=== PATIENT | female | born 2000 | race Caucasian/White ===

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

== ENCOUNTER 2020-02-12 16:33 | Emergency (ER) | payer OTHER ==
[~2020-02-12] VITALS: Ht 170.2 cm; Wt 58.1 kg
[~2020-02-12 16:33] MED LIST: ALPR0.5T PO; NORE-106
[2020-02-12 17:28] LABS: BASOPHILS % (AUTO) 0 % (0-10); EOSINOPHILS # (AUTO) 0.1 10^3/uL (0.0-0.3); EOSINOPHILS % (AUTO) 1 % (0-10); HEMATOCRIT 42 % (35-52); HEMOGLOBIN 15.3 G/DL (11.5-16.0); LYMPHOCYTES # (AUTO) 2.4 X 10^3 (1.0-4.0); LYMPHOCYTES % (AUTO) 42 % (12-44); MEAN CORPUSCULAR HEMOGLOBIN 32 PG (25-34); MEAN CORPUSCULAR HGB CONC 37 G/DL (32-36); MEAN CORPUSCULAR VOLUME 87 FL (80-99); MEAN PLATELET VOLUME 10.3 FL (7.4-10.4); MONOCYTES # (AUTO) 0.4 X 10^3 (0.0-1.0); MONOCYTES % (AUTO) 6 % (0-12); NEUTROPHILS # (AUTO) 2.9 X 10^3 (1.8-7.8); NEUTROPHILS % (AUTO) 51 % (42-75); PLATELET COUNT 184 10^3/uL (130-400); RED CELL DISTRIBUTION WIDTH 12.9 % (10.0-14.5); WHITE BLOOD COUNT 5.7 10^3/uL (4.3-11.0)
[2020-02-12 17:33] LABS: CHLORIDE 105 MMOL/L (98-107); POTASSIUM 3.7 MMOL/L (3.6-5.0); SODIUM 139 MMOL/L (135-145)
[2020-02-12 17:34] LABS: CALCIUM 9.9 MG/DL (8.5-10.1); GLUCOSE 96 MG/DL (70-105)
[2020-02-12 17:36] LABS: CARBON DIOXIDE 24 MMOL/L (21-32)
[2020-02-12 17:38] LABS: CREATININE SERUM 0.83 MG/DL (0.60-1.30); GFR ESTIMATED > 60
[2020-02-12 17:39] LABS: BUN/CREATININE RATIO 10
--- NOTE | 2020-02-12 17:52 | ED General ---
General Chief Complaint: Cardiac/General Problems Stated Complaint: CHEST PAIN;HEART FLUTTER;SOA Nursing Triage Note: PT AMBULATE TO ROOM 08 WITH C/O HEARTING FLUTTERING. Nursing Sepsis Screen: No Definite Risk Source of Information: Patient Exam Limitations: No Limitations History of Present Illness Date Seen by Provider: Feb 12, 2020 Time Seen by Provider: 17:31 Initial Comments Here with report of heart palpitations. She felt like her heart rate was actually low and then high normal today. Had a period where she felt sleepy and sluggish. Also has focal cord dysfunction and felt that coming on which she usually resolves with Xanax but she did not want to take that because she did not want to feel more sluggish. Presents here for further evaluation to make sure that there is not a heart rhythm problem. Does not use significant amount of caffeine and does not smoke or use illicit drugs. She's had this problem previously and has been told that the sluggish feeling may be related to the need to eat or lower blood sugar. She's also been instructed to drink electrolyte containing fluids such as Gatorade or Pedialyte. She is currently in no distress and not having any current problems. Timing/Duration: 1-3 Hours, Changing Over Time, Gone Now Severity: Mild, Moderate Associated Systoms: No Chest Pain, No Cough, No Fever/Chills, No Nausea/Vomiting, No Shortness of Air; Weakness Allergies and Home Medications Allergies Coded Allergies: No Known Drug Allergies (Unverified , 09/02/19) Patient Home Medication List Home Medication List Reviewed: Yes Review of Systems Review of Systems Constitutional: see HPI; No chills, No fever EENTM: no symptoms reported Respiratory: no symptoms reported Cardiovascular: No chest pain; palpitations Gastrointestinal: No abdominal pain, No nausea, No vomiting Genitourinary: no symptoms reported : No Skin: no symptoms reported Psychiatric/Neurological: Anxiety, Weakness Past Inhetyy-Tdcrki-Kemxrm Hx Past Med/Social Hx: Reviewed Nursing Past Med/Soc Hx Patient Social History Alcohol Use: Denies Use Recreational Drug Use: No Smoking Status: Never a Smoker 2nd Hand Smoke Exposure: No Recent Foreign Travel: No Contact w/Someone Who Travel: No Recent Infectious Disease Expo: No Recent Hopitalizations: No Physical Abuse: No Sexual Abuse: No Mistreated: No Fear: No Immunizations Up To Date Date of Influenza Vaccine: Mar 17, 2019 Seasonal Allergies Seasonal Allergies: No Past Medical History Surgeries: Yes Abdominal Respiratory: Yes Asthma Cardiac: No Neurological: No Genitourinary: No Gastrointestinal: No Musculoskeletal: No Endocrine: No HEENT: Yes (paroxysmal vocal cord motion dysfunction) Cancer: No Psychosocial: Yes Anxiety Integumentary: No Blood Disorders: No Family Medical History Reviewed Nursing Family Hx Physical Exam Vital Signs Vital Signs - First Documented 02/12/20 16:57 Temp 36.7 Pulse 79 Resp 18 B/P (MAP) 152/87 (108) O2 Delivery Room Air Capillary Refill : Less Than 3 Seconds Height, Weight, BMI Height: '" Weight: lbs. oz. kg; 20.00 BMI Method: General Appearance: No Apparent Distress, WD/WN Neck: Non Tender, Supple Respiratory: Lungs Clear, Normal Breath Sounds, No Accessory Muscle Use, No Respiratory Distress Cardiovascular: Regular Rate, Rhythm, No Murmur, Normal Peripheral Pulses Back: Normal Inspection, No CVA Tenderness, No Vertebral Tenderness Extremity: Normal Inspection, Normal Range of Motion, Non Tender, No Calf Tenderness, No Pedal Edema Neurologic/Psychiatric: Alert, Oriented x3 Progress/Results/Core Measures Suspected Sepsis Recent Fever Within 48 Hours: No Infection Criteria Present: None New/Unexplained Altered Menta: No Sepsis Screen: No Definite Risk SIRS Temperature: Pulse: 79 Respiratory Rate: 18 Laboratory Tests 02/12/20 17:11: White Blood Count 5.7 Blood Pressure 152 /87 Mean: 108 Laboratory Tests 02/12/20 17:11: Creatinine 0.83, Platelet Count 184 Results/Orders Lab Results Laboratory Tests Test 02/12/20 17:11 Range/Units White Blood Count 5.7 4.3-11.0 10^3/uL Red Blood Count 4.82 4.35-5.85 10^6/uL Hemoglobin 15.3 11.5-16.0 G/DL Hematocrit 42 35-52 % Mean Corpuscular Volume 87 80-99 FL Mean Corpuscular Hemoglobin 32 25-34 PG Mean Corpuscular Hemoglobin Concent 37 H 32-36 G/DL Red Cell Distribution Width 12.9 10.0-14.5 % Platelet Count 184 130-400 10^3/uL Mean Platelet Volume 10.3 7.4-10.4 FL Neutrophils (%) (Auto) 51 42-75 % Lymphocytes (%) (Auto) 42 12-44 % Monocytes (%) (Auto) 6 0-12 % Eosinophils (%) (Auto) 1 0-10 % Basophils (%) (Auto) 0 0-10 % Neutrophils # (Auto) 2.9 1.8-7.8 X 10^3 Lymphocytes # (Auto) 2.4 1.0-4.0 X 10^3 Monocytes # (Auto) 0.4 0.0-1.0 X 10^3 Eosinophils # (Auto) 0.1 0.0-0.3 10^3/uL Basophils # (Auto) 0.0 0.0-0.1 10^3/uL Sodium Level 139 135-145 MMOL/L Potassium Level 3.7 3.6-5.0 MMOL/L Chloride Level 105 98-107 MMOL/L Carbon Dioxide Level 24 21-32 MMOL/L Anion Gap 10 5-14 MMOL/L Blood Urea Nitrogen 8 7-18 MG/DL Creatinine 0.83 0.60-1.30 MG/DL Estimat Glomerular Filtration Rate > 60 BUN/Creatinine Ratio 10 Glucose Level 96 70-105 MG/DL Calcium Level 9.9 8.5-10.1 MG/DL Serum Test, Qualitative NEGATIVE NEGATIVE Vital Signs/I&O 02/12/20 16:57 Temp 36.7 Pulse 79 Resp 18 B/P (MAP) 152/87 (108) O2 Delivery Room Air Capillary Refill : Less Than 3 Seconds Blood Pressure Mean: 108 Progress Note : Progress Note Seen and evaluated. Labs and EKG ordered and done. EKG shows no acute findings and labs showed no acute abnormalities. I did discuss with the patient outpatient options including electrolyte replacement fluids and normal diet especially if she is feeling a little weak. She has not had a menstrual period in 6 months since being off the pill and I encouraged her to discuss this with her doctor. She does admit to some stress but not overwhelming. Currently no acute significant findings. Patient feels comfortable going home and is reassured. Discharged home with return precautions. Patient verbalize un derstanding instructions and agreement with plan. Departure Impression Primary Impression: Palpitations Disposition: HOME, SELF-CARE Condition: Improved Departure-Patient Inst. Decision time for Depature: 17:52 Referrals: [facility] (PCP/Family) Primary Care Physician Patient Instructions: Palpitations Add. Discharge Instructions: All discharge instructions reviewed with patient and/or family. Voiced understanding. Drink plenty of fluids and eat a normal diet. Follow-up with [facility] to discuss this episode and also discuss the lack of menstrual period over the last 6 months. Return for worse pain, fever, vomiting, weakness, breathing problems or other concerns as needed. Copy Copies To 1: ANDREI DOBBS MD, TIMOTHY D MD Feb 12, 2020 17:52
[2020-02-12 18:02] LABS: FREE T4 (FREE THYROXINE) 0.89 NG/DL (0.70-1.48)
[2020-02-12 18:05] VITALS: BP 111/63
== END 2020-02-12 18:05 | disposition home or self-care (01) ==
LOC: EDUNIT# 16:33 → ER 16:35
DX: R00.2 Palpitations (principal); Z87.891 Personal history of nicotine dependence
CPT/HCPCS: 36415; 80048; 84439; 84443; 84703; 85025

== ENCOUNTER 2020-05-04 22:10 | Emergency (ER) | payer OTHER ==
[~2020-05-04] VITALS: Ht 170 cm; Wt 58.1 kg
[2020-05-04] MEDS ORDERED: EPINEPHrine INJECTION 1 MG/ML AMP IM ONE (22:15)
[2020-05-04] MEDS ORDERED: NS IV 500 ML 500 ML IV ONE (22:26)
[2020-05-04 22:38] LABS: BASOPHILS % (AUTO) 0 % (0-10); EOSINOPHILS # (AUTO) 0.1 10^3/uL (0.0-0.3); EOSINOPHILS % (AUTO) 1 % (0-10); HEMATOCRIT 39 % (35-52); HEMOGLOBIN 13.8 g/dL (11.5-16.0); LYMPHOCYTES # (AUTO) 2.9 10^3/uL (1.0-4.0); LYMPHOCYTES % (AUTO) 30 % (12-44); MEAN CORPUSCULAR HEMOGLOBIN 32 pg (25-34); MEAN CORPUSCULAR HGB CONC 36 g/dL (32-36); MEAN CORPUSCULAR VOLUME 91 fL (80-99); MEAN PLATELET VOLUME 10.1 fL (9.0-12.2); MONOCYTES # (AUTO) 0.5 10^3/uL (0.0-1.0); MONOCYTES % (AUTO) 6 % (0-12); NEUTROPHILS % (AUTO) 63 % (42-75); PLATELET COUNT 202 10^3/uL (130-400); WHITE BLOOD COUNT 9.6 10^3/uL (4.3-11.0)
[2020-05-04] MEDS ORDERED: RT-ALBUTEROL SULF 2.5 MG/3 ML PRE-MIX VIAL ONE (22:49)
--- NOTE | 2020-05-04 22:49 | NUR ---
RADHA, PT MOTHER, UPDATED ON CURRENT CONDITION AND PLAN TO MONITOR PT FOR APPROX 2-[address] WAITE.
[2020-05-04] MEDS ORDERED: RT-ALBUTEROL SULF 2.5 MG/3 ML PRE-MIX VIAL INH STA (22:50)
--- NOTE | 2020-05-04 23:02 | ED Respiratory ---
General Chief Complaint: Respiratory Problems Stated Complaint: SOA Source: patient Exam Limitations: no limitations History of Present Illness Date Seen by Provider: May 04, 2020 Time Seen by Provider: 22:06 Initial Comments Patient presents to ER by EMS from [address] [place] [address] where she was traveling to [place] where her family lives when she started having laryngospasm. She has a history of paradoxical laryngospasms and asthma. EMS gave her 4 mg of Ativan. She took a milligram of Ativan herself that she had for they arrived. They also gave her 125 mg of Solu-Medrol and established a line in her left bicep. No epinephrine was given en route. Patient was unable to give any meaningful history but she did have a laminated health history card. She denies any fever chills cough shortness of breath prior to this. Allergies and Home Medications Allergies Coded Allergies: No Known Drug Allergies (Unverified , 09/02/19) Home Medications Epinephrine 0.3 Mg/0.3 Ml Auto.injct, 0.3 MG IJ Q15M PRN for laryngospasm Prescribed by: JANNIE WAITE on 05/05/20 0107 Patient Home Medication List Home Medication List Reviewed: Yes Review of Systems Review of Systems Constitutional: No chills, No diaphoresis EENTM: see HPI; No ear pain, No blurred vision, No eye pain Respiratory: No cough, No short of breath Cardiovascular: No edema, No Hx of Intervention, No vascular heart diseas Gastrointestinal: No abdominal pain, No nausea, No vomiting Genitourinary: No dysuria, No hematuria Past Dtvzpci-Suhxbx-Thrppr Hx Patient Social History Alcohol Use: Denies Use Recreational Drug Use: No Smoking Status: Never a Smoker 2nd Hand Smoke Exposure: No Recent Hopitalizations: No Immunizations Up To Date Date of Influenza Vaccine: Mar 17, 2019 Seasonal Allergies Seasonal Allergies: No Past Medical History Surgeries: Yes Abdominal Respiratory: Yes Asthma Cardiac: No Neurological: No Genitourinary: No Gastrointestinal: No Musculoskeletal: No Endocrine: No HEENT: Yes (paroxysmal vocal cord motion dysfunction) Cancer: No Psychosocial: Yes Anxiety Integumentary: No Blood Disorders: No Physical Exam Vital Signs - First Documented 05/04/20 05/04/20 05/04/20 22:12 22:39 22:56 Temp 36.3 Pulse 99 Resp 22 B/P (MAP) 121/69 Pulse Ox 98 O2 Delivery Room Air O2 Flow Rate 2.00 Capillary Refill : Height: '" Weight: lbs. oz. kg; 20.00 BMI Method: General Appearance: WD/WN, moderate distress Eyes: Bilateral Eye Normal Inspection, Bilateral Eye PERRL, Bilateral Eye EOMI HEENT: PERRL/EOMI, pharynx normal, other (laryngospasm with audible stridor) Neck: non-tender, full range of motion, normal inspection Respiratory: respiratory distress, decreased breath sounds, accessory muscle use, wheezing (faint bilateral), other (stridor and accessory muscle use and retractions supraclavicular) Cardiovascular: normal peripheral pulses, regular rate, rhythm Progress/Results/Core Measures Suspected Sepsis SIRS Temperature: Pulse: Respiratory Rate: Laboratory Tests 05/04/20 22:30: White Blood Count 9.6 Blood Pressure / Mean: Laboratory Tests 05/04/20 22:30: Creatinine 0.87, Platelet Count 202, Total Bilirubin 0.4 Results/Orders Lab Results Laboratory Tests Test 05/04/20 22:30 Range/Units White Blood Count 9.6 4.3-11.0 10^3/uL Red Blood Count 4.30 3.80-5.11 10^6/uL Hemoglobin 13.8 11.5-16.0 g/dL Hematocrit 39 35-52 % Mean Corpuscular Volume 91 80-99 fL Mean Corpuscular Hemoglobin 32 25-34 pg Mean Corpuscular Hemoglobin Concent 36 32-36 g/dL Red Cell Distribution Width 11.9 10.0-14.5 % Platelet Count 202 130-400 10^3/uL Mean Platelet Volume 10.1 9.0-12.2 fL Immature Granulocyte % (Auto) 0 % Neutrophils (%) (Auto) 63 42-75 % Lymphocytes (%) (Auto) 30 12-44 % Monocytes (%) (Auto) 6 0-12 % Eosinophils (%) (Auto) 1 0-10 % Basophils (%) (Auto) 0 0-10 % Neutrophils # (Auto) 6.0 1.8-7.8 10^3/uL Lymphocytes # (Auto) 2.9 1.0-4.0 10^3/uL Monocytes # (Auto) 0.5 0.0-1.0 10^3/uL Eosinophils # (Auto) 0.1 0.0-0.3 10^3/uL Basophils # (Auto) 0.0 0.0-0.1 10^3/uL Immature Granulocyte # (Auto) 0.0 0.0-0.1 10^3/uL Sodium Level 139 135-145 MMOL/L Potassium Level 3.1 L 3.6-5.0 MMOL/L Chloride Level 107 98-107 MMOL/L Carbon Dioxide Level 17 L 21-32 MMOL/L Anion Gap 15 H 5-14 MMOL/L Blood Urea Nitrogen 15 7-18 MG/DL Creatinine 0.87 0.60-1.30 MG/DL Estimat Glomerular Filtration Rate > 60 BUN/Creatinine Ratio 17 Glucose Level 105 70-105 MG/DL Calcium Level 9.6 8.5-10.1 MG/DL Corrected Calcium 9.2 8.5-10.1 MG/DL Total Bilirubin 0.4 0.1-1.0 MG/DL Aspartate Amino Transf (AST/SGOT) 17 5-34 U/L Alanine Aminotransferase (ALT/SGPT) 13 0-55 U/L Alkaline Phosphatase 78 40-136 U/L C-Reactive Protein High Sensitivity 0.02 0.00-0.50 MG/DL Total Protein 7.4 6.4-8.2 GM/DL Albumin 4.5 3.2-4.5 GM/DL Serum Test, Qualitative NEGATIVE NEGATIVE My Orders Orders - JANNIE WAITE Epinephrine 1 Mg Injection (Adrenalin I (05/04/20 22:15) End Tidal Co2 (05/04/20 22:26) Ed Iv/Invasive Line Start (05/04/20 22:26) Ns Iv 500 Ml (Sodium Chloride 0.9%) (05/04/20 22:26) Cbc With Automated Diff (05/04/20 22:26) Comprehensive Metabolic Panel (05/04/20 22:26) Hs C Reactive Protein (05/04/20 22:26) Hcg,Qualitative Serum (05/04/20 22:26) Albuterol Pre-Mix Nebs (Rt) (Proventil (05/04/20 22:50) Svn Small Volume Nebulizer (05/04/20 22:50) Albuterol Pre-Mix Nebs (Rt) (Proventil (05/04/20 22:49) O2 (05/04/20 23:06) Medications Given in ED Current Medications Medications Dose Ordered Sig/Tanna Route Start Time Stop Time Status Last Admin Dose Admin Epinephrine HCl 0.3 mg ONCE ONCE IM 05/04/20 22:15 05/04/20 22:16 DC 05/04/20 22:20 0.3 MG Sodium Chloride 500 ml @ 0 mls/hr Q0M ONCE IV 05/04/20 22:26 05/04/20 22:28 DC 05/04/20 22:32 0 MLS/HR Vital Signs/I&O 05/04/20 05/04/20 05/04/20 22:12 22:39 22:56 Temp 36.3 Pulse 99 Resp 22 B/P (MAP) 121/69 Pulse Ox 98 O2 Delivery Room Air Nasal Cannula Nasal Cannula O2 Flow Rate 2.00 2.00 Capillary Refill : Progress Note #1: Time: 23:04 Progress Note 0.3 mg of epinephrine was delivered IM which within about 10 minutes made significant improvement in her status. She was no longer having retractions increased work of breathing or stridor. She was however having some low oxygen sats around 89-93% which was thought to be either due to bronchospasms or Ativan . Dose of albuterol took away her faint wheezing. We'll continue to monitor her for several hours since she received 5 mg of Ativan to make sure she does not become too sedate. End-tidal CO2 is 24. Progress Note #2: Time: 01:07 Progress Note Before midnight the patient's oxygen was titrated down to 1 L and she stayed 96- 98%. About 20 minutes ago returned her oxygen completely off she is resting comfortably, easily arousable and without stridor or wheezing. Her oxygen saturation has stayed 96%. Plan to observe her until 1:30 and if she is still asymptomatic we will allow her to go home with a prescription for epinephrine. Her labs did not reveal any significant inflammatory or infectious changes. She does not have an erythematous swollen retropharynx. Departure Impression Primary Impression: Laryngospasm Disposition: 01 HOME, SELF-CARE Condition: Improved Departure-Patient Inst. Decision time for Depature: 01:30 Referrals: [facility] (PCP/Family) Primary Care Physician Patient Instructions: Inducible Laryngeal Obstruction (ILO) Add. Discharge Instructions: manufacturing supervisor 2nd shift the epinephrine pens. If this happens again you are to give yourself one dose of epinephrine every 15 minutes that you are having symptoms on your way to the ER. Follow-up with your primary care doctor. All discharge instructions reviewed with patient and/or family. Voiced understanding. Scripts Epinephrine (Epipen 2-Waqas) 0.3 Mg/0.3 Ml Auto.injct 0.3 MG IJ Q15M PRN for laryngospasm, #1 EA 0 Refills Prov: JANNIE WAITE 05/05/20 JANNIE WAITE May 04, 2020 23:02
[2020-05-04 23:19] LABS: ALANINE AMINOTRANSFERASE 13 U/L (0-55); ALBUMIN 4.5 GM/DL (3.2-4.5); ALKALINE PHOSPHATASE 78 U/L (40-136); BILIRUBIN,TOTAL 0.4 MG/DL (0.1-1.0); CALCIUM 9.6 MG/DL (8.5-10.1); CARBON DIOXIDE 17 MMOL/L (21-32); CHLORIDE 107 MMOL/L (98-107); GLUCOSE 105 MG/DL (70-105); POTASSIUM 3.1 MMOL/L (3.6-5.0); SODIUM 139 MMOL/L (135-145); TOTAL PROTEIN 7.4 GM/DL (6.4-8.2)
--- NOTE | 2020-05-04 23:30 | NUR ---
02 SAT 98% ON 2L VIA NC. 02 DECREASED TO 1L. 02 SATS REMAIN 97-98%. ETCO2 35.
[2020-05-05 00:12] LABS: BUN/CREATININE RATIO 17; CREATININE SERUM 0.87 MG/DL (0.60-1.30); GFR ESTIMATED > 60
--- NOTE | 2020-05-05 00:20 | NUR ---
RESTING WITH EYES CLOSED. NO SIGNS OF DISTRESS NOTED. O2 SAT 97% ON 1L VIA NC. ETCO2 38.
--- NOTE | 2020-05-05 00:32 | NUR ---
RESTING QUIETLY IN BED WITH NO DISTRESS OR DISCOMFORT NOTED. O2 SAT 96% ON 1L VIA NC. O2 TURNED OFF AT THIS TIME PER DR. WAITE FOR OBSERVATION ON RA WHILE SLEEPING. BP 116/60, ETCO 38.
[2020-05-05] MEDS ORDERED: EPIN0.3P3 IJ (01:07)
--- NOTE | 2020-05-05 01:48 | NUR ---
PT ASSISTED TO POV AND DC INSTRUCTIONS REVIEWED WITH MOTHER PT IS STILL DROWSY AT TIMES. MOTHER VERBALIZED UNDERSTANDING WELL.
== END 2020-05-05 01:48 | disposition home or self-care (01) ==
LOC: EDUNIT# 22:10 → ER 22:11
DX: J38.5 Laryngeal spasm (principal); J45.909 Unspecified asthma, uncomplicated
CPT/HCPCS: 36415; 80053; 84703; 85025; 86141; 94640; 94760

== ENCOUNTER 2020-08-05 21:49 | Emergency (ER) | payer OTHER ==
[~2020-08-05] VITALS: Ht 177.8 cm; Wt 58.9 kg
[~2020-08-05 21:49] MED LIST changes: +EPIN0.3P3 IJ
[2020-08-05] MEDS ORDERED: RT-HYPERTONIC SALINE 3% 4 ML NEB IH ONE (22:00)
[2020-08-05] MEDS ORDERED: RT-epiNEPHrine (RACEMIC) 2.25% 0.5 ML VIAL INH ONE (22:00)
[2020-08-05 22:04] LABS: ABG BASE EXCESS -1.3 MMOL/L (-2.5-2.5); ABG OXYGEN SATURATION 98 % (94-100); ABG PCO2 27 MMHG (35-45); ABG PH 7.51 (7.37-7.43); ABG PO2 101 MMHG (79-93); ABG TCO2 22.1 MMOL/L (21.0-31.0)
[2020-08-05 22:05] LABS: ALLENS TEST YES-POS; INSPIRED O2 ROOM AIR; PATIENT TEMP 36.1; VENTILATOR NO
[2020-08-05 22:06] LABS: BASOPHILS % (AUTO) 0 % (0-10); EOSINOPHILS % (AUTO) 1 % (0-10); HEMATOCRIT 41 % (35-52); HEMOGLOBIN 14.4 g/dL (11.5-16.0); LYMPHOCYTES # (AUTO) 1.9 10^3/uL (1.0-4.0); LYMPHOCYTES % (AUTO) 35 % (12-44); MEAN CORPUSCULAR HEMOGLOBIN 32 pg (25-34); MEAN CORPUSCULAR HGB CONC 35 g/dL (32-36); MEAN CORPUSCULAR VOLUME 92 fL (80-99); MEAN PLATELET VOLUME 9.3 fL (9.0-12.2); MONOCYTES # (AUTO) 0.6 10^3/uL (0.0-1.0); MONOCYTES % (AUTO) 10 % (0-12); NEUTROPHILS # (AUTO) 3.1 10^3/uL (1.8-7.8); NEUTROPHILS % (AUTO) 54 % (42-75); PLATELET COUNT 217 10^3/uL (130-400); WHITE BLOOD COUNT 5.6 10^3/uL (4.3-11.0)
--- NOTE | 2020-08-05 22:06 | ED Respiratory ---
General Stated Complaint: VOCAL CHORD SPASM;SOB Source: patient Exam Limitations: no limitations History of Present Illness Date Seen by Provider: Aug 05, 2020 Time Seen by Provider: 21:45 Initial Comments Patient presents ER by private conveyance from her home with her significant other and chief complaint about 20 to 30 minutes prior to arrival that she was experiencing a vocal cord spasm. She took a milligram of Ativan just before coming to the ER. She denies a history of allergies. She says she has an EpiPen but did not use it. She does not follow with a primary care doctor and is from [place]. She will not her head yes or no but refuses or is unable to speak so history is per her significant other. She does have recent surgery on her stomach for acid reflux. No other known surgical or medical history. Allergies and Home Medications Allergies Coded Allergies: No Known Drug Allergies (Unverified , 09/02/19) Home Medications Epinephrine 0.3 Mg/0.3 Ml Auto.injct, 0.3 MG IJ Q15M PRN for laryngospasm Prescribed by: JANNIE WAITE on 05/05/20 0107 Patient Home Medication List Home Medication List Reviewed: Yes Review of Systems Review of Systems Constitutional: No chills, No diaphoresis EENTM: No ear discharge, No ear pain Respiratory: see HPI; No cough; short of breath Cardiovascular: No chest pain, No palpitations Gastrointestinal: No abdominal pain, No nausea, No vomiting Genitourinary: No discharge, No dysuria Musculoskeletal: No back pain, No gout, No joint pain All Other Systems Reviewed Negative Unless Noted: Yes Past Lwsfqbx-Xowjoz-Qybdew Hx Patient Social History Alcohol Use: Denies Use Smoking Status: Never a Smoker 2nd Hand Smoke Exposure: No Recent Hopitalizations: No Immunizations Up To Date Date of Influenza Vaccine: Mar 17, 2019 Seasonal Allergies Seasonal Allergies: No Past Medical History Surgeries: Yes (LAPROSCOPIC FUNDOPLICATION) Abdominal Respiratory: Yes Asthma Cardiac: No Neurological: No Genitourinary: No Gastrointestinal: No Musculoskeletal: No Endocrine: No 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 oz. kg; 20.00 BMI Method: General Appearance: WD/WN, mild distress Eyes: Bilateral Eye Normal Inspection, Bilateral Eye PERRL, Bilateral Eye EOMI HEENT: PERRL/EOMI, normal ENT inspection, TMs normal, pharynx normal Neck: non-tender, full range of motion, supple, normal inspection Respiratory: lungs clear, normal breath sounds, no respiratory distress (Oxygen saturation 99% on room air breathing about 22 breaths/min. Making an audible, soft moaning sound on inspiration and expiration. That goes away when she is answering questions by shaking her head yes or no.), no accessory muscle use, other (No stridor auscultated.) Cardiovascular: normal peripheral pulses, regular rate, rhythm Gastrointestinal: normal bowel sounds, non tender, soft Neurologic/Psychiatric: alert, oriented x 3 Skin: normal color, warm/dry, other (Several scars along her left forearm palmar side linear, parallel lines) Progress/Results/Core Measures Suspected Sepsis SIRS Temperature: Pulse: Respiratory Rate: Laboratory Tests 08/05/20 21:52: White Blood Count 5.6 Blood Pressure / Mean: Laboratory Tests 08/05/20 21:52: Creatinine 0.96, Platelet Count 217, Total Bilirubin 0.5 Results/Orders Lab Results Laboratory Tests Test 08/05/20 21:52 Range/Units White Blood Count 5.6 4.3-11.0 10^3/uL Red Blood Count 4.48 3.80-5.11 10^6/uL Hemoglobin 14.4 11.5-16.0 g/dL Hematocrit 41 35-52 % Mean Corpuscular Volume 92 80-99 fL Mean Corpuscular Hemoglobin 32 25-34 pg Mean Corpuscular Hemoglobin Concent 35 32-36 g/dL Red Cell Distribution Width 12.1 10.0-14.5 % Platelet Count 217 130-400 10^3/uL Mean Platelet Volume 9.3 9.0-12.2 fL Immature Granulocyte % (Auto) 0 % Neutrophils (%) (Auto) 54 42-75 % Lymphocytes (%) (Auto) 35 12-44 % Monocytes (%) (Auto) 10 0-12 % Eosinophils (%) (Auto) 1 0-10 % Basophils (%) (Auto) 0 0-10 % Neutrophils # (Auto) 3.1 1.8-7.8 10^3/uL Lymphocytes # (Auto) 1.9 1.0-4.0 10^3/uL Monocytes # (Auto) 0.6 0.0-1.0 10^3/uL Eosinophils # (Auto) 0.0 0.0-0.3 10^3/uL Basophils # (Auto) 0.0 0.0-0.1 10^3/uL Immature Granulocyte # (Auto) 0.0 0.0-0.1 10^3/uL Blood Gas Puncture Site RIGHT RADIAL Blood Gas Patient Temperature 36.1 Arterial Blood pH 7.51 H 7.37-7.43 Arterial Blood Partial Pressure CO2 27 L 35-45 MMHG Arterial Blood Partial Pressure O2 101 H 79-93 MMHG Arterial Blood HCO3 21 L 23-27 MMOL/L Arterial Blood Total CO2 22.1 21.0-31.0 MMOL/L Arterial Blood Oxygen Saturation 98 94-100 % Arterial Blood Base Excess -1.3 -2.5-2.5 MMOL/L Hung Test YES-POS Blood Gas Ventilator Setting NO Blood Gas Inspired Oxygen ROOM AIR Sodium Level 139 135-145 MMOL/L Potassium Level 3.6 3.6-5.0 MMOL/L Chloride Level 104 98-107 MMOL/L Carbon Dioxide Level 23 21-32 MMOL/L Anion Gap 12 5-14 MMOL/L Blood Urea Nitrogen 10 7-18 MG/DL Creatinine 0.96 0.60-1.30 MG/DL Estimat Glomerular Filtration Rate > 60 BUN/Creatinine Ratio 10 Glucose Level 102 70-105 MG/DL Calcium Level 9.7 8.5-10.1 MG/DL Corrected Calcium 8.5-10.1 MG/DL Total Bilirubin 0.5 0.1-1.0 MG/DL Aspartate Amino Transf (AST/SGOT) 17 5-34 U/L Alanine Aminotransferase (ALT/SGPT) 14 0-55 U/L Alkaline Phosphatase 78 40-136 U/L C-Reactive Protein High Sensitivity 0.02 0.00-0.50 MG/DL Total Protein 8.3 H 6.4-8.2 GM/DL Albumin 4.8 H 3.2-4.5 GM/DL Serum Test, Qualitative NEGATIVE NEGATIVE My Orders Orders - JANNIE WAITE Rt Epinephrine (Racemic Epinephrine 2.25 (08/05/20 22:00) Chest 1 View, Ap/Pa Only (08/05/20 21:58) Hypertonic Saline 3% Neb (Rt-Hypertonic (08/05/20 22:00) Svn Small Volume Nebulizer (08/05/20 21:58) Cbc With Automated Diff (08/05/20 21:58) Comprehensive Metabolic Panel (08/05/20 21:58) Hs C Reactive Protein (08/05/20 21:58) Hcg,Qualitative Serum (08/05/20 21:58) Arterial Blood Gas (08/05/20 21:58) Lorazepam Injection (Ativan Injection) (08/05/20 22:30) Medications Given in ED Current Medications Medications Dose Ordered Sig/Tanna Route Start Time Stop Time Status Last Admin Dose Admin Lorazepam 1 mg ONCE ONCE IVP 08/05/20 22:30 08/05/20 22:37 DC 08/05/20 22:49 1 MG Vital Signs/I&O 08/05/20 08/05/20 21:50 22:11 Temp 37.2 Pulse 94 Resp 18 B/P (MAP) 123/94 (104) Pulse Ox 99 97 O2 Delivery Room Air Capillary Refill : Progress Note #1: Time: 22:04 Progress Note Suspicious there is a psychogenic source of her respiratory complaints. We will give her a racemic epinephrine and get an ABG to see if she has made herself alkalotic from an anxiety attack. She has already given herself a benzodiazepine so we will give that some time to work. She does not appear to be in acute respiratory distress. Progress Note #2: Time: 23:27 Progress Note Racemic epinephrine did not help her symptoms as expected. ABG demonstrates she was having respiratory alkalosis likely due to anxiety attack. A milligram of Ativan was offered and she accepted. After she has had she says she feels much better and is ready to go home. Departure Impression Primary Impression: Anxiety attack Disposition: 01 HOME, SELF-CARE Condition: Improved Departure-Patient Inst. Decision time for Depature: 23:20 Referrals: [facility] (PCP/Family) Primary Care Physician Patient Instructions: Panic Disorder (DC) Add. Discharge Instructions: I suggest you follow-up with your primary care doctor/psychiatrist to discuss your anxiety attacks and see if there is medications that you could use in addition to counseling and coping strategies to help contain your panic attacks. Return to the ER for any worsening shortness of air, chest pain or other worrisome symptoms. You may continue to take your Xanax as prescribed. If 1 tablet does not work for you in the first 15 to 20 minutes then you may take a second tablet. Scripts Alprazolam (Xanax) 0.25 Mg Tablet 0.25-0.5 MG PO Q6H PRN for ANXIETY, #10 TAB 0 Refills Prov: JANNIE WAITE 08/05/20 Work/School Note: School/Childcare Release Date Seen in the Emergency Department: Aug 05, 2020 Time Dismissed from Emergency Department: 23:29 Return to School: Aug 07, 2020 Restrictions: No Restrictions JANNIE WAITE Aug 05, 2020 22:05
[2020-08-05 22:11] LABS: ALBUMIN 4.8 GM/DL (3.2-4.5); CHLORIDE 104 MMOL/L (98-107); POTASSIUM 3.6 MMOL/L (3.6-5.0); SODIUM 139 MMOL/L (135-145)
[2020-08-05 22:12] LABS: CALCIUM 9.7 MG/DL (8.5-10.1)
[2020-08-05 22:14] LABS: GLUCOSE 102 MG/DL (70-105); TOTAL PROTEIN 8.3 GM/DL (6.4-8.2)
[2020-08-05 22:15] LABS: BILIRUBIN,TOTAL 0.5 MG/DL (0.1-1.0); CARBON DIOXIDE 23 MMOL/L (21-32)
[2020-08-05 22:17] LABS: ALKALINE PHOSPHATASE 78 U/L (40-136); CREATININE SERUM 0.96 MG/DL (0.60-1.30); GFR ESTIMATED > 60
[2020-08-05 22:18] LABS: BUN/CREATININE RATIO 10
[2020-08-05 22:20] LABS: ALANINE AMINOTRANSFERASE 14 U/L (0-55)
[2020-08-05] MEDS ORDERED: LORazepam INJ 2 MG/ML (ATIVAN) VIAL IVP ONE (22:30)
[2020-08-05] MEDS ORDERED: ALPR0.25 PO (23:34)
[2020-08-05 23:50] VITALS: BP 116/71
--- NOTE | 2020-08-06 05:07 | Diagnostic Imaging Report ---
EXAMINATION: Portable erect AP chest at 1036 PM INDICATION: Shortness of breath COMPARISON: There are no prior exams available for comparison. FINDINGS: The heart size is within normal limits. The lungs are clear. The osseous structures, where visualized, are intact. IMPRESSION: Negative for active disease. Dictated by: Dictated on workstation # [id number]
== END 2020-08-05 23:49 | disposition home or self-care (01) ==
LOC: EDUNIT# 21:49 → ER 21:50
DX: F41.9 Anxiety disorder, unspecified (principal)
CPT/HCPCS: 36415; 71045; 80053; 82805; 84703; 85025; 86141; 94640; 94664

== ENCOUNTER 2020-12-24 00:24 | Emergency (ER) | payer OTHER ==
[~2020-12-24] VITALS: Ht 178 cm; Wt 59.0 kg
[~2020-12-24 00:24] MED LIST changes: +ALPR0.25 PO
--- NOTE | 2020-12-24 00:37 | ED EENT ---
History of Present Illness General Chief Complaint: Oral/Throat Problems Stated Complaint: COUGHING Nursing Triage Note: BROUGHT IN BY [facility] FOR PERSISTANT COUGHING. PT WITH HX VOCAL CHORD DYSFUNCTION. Source: patient Exam Limitations: no limitations History of Present Illness Date Seen by Provider: Dec 24, 2020 Time Seen by Provider: 00:17 Initial Comments Patient to the ER by EMS from home with chief complaint of some kind of laryngospasm keeping her from being able to talk. She says she has had this in the past and racemic epinephrine seem to help. EMS gave her a DuoNeb because her sats were around 88% when they arrived. After the DuoNeb was given her sats were 98% on room air. She is still unable to talk. She does not smoke drink or use drugs. She has not been hit in the throat nor exposed to any smoke or toxic fumes that she is aware of. Allergies and Home Medications Allergies Coded Allergies: No Known Drug Allergies (Unverified , 09/02/19) Home Medications Alprazolam 0.25 Mg Tablet, 0.25-0.5 MG PO Q6H PRN for ANXIETY Prescribed by: JANNIE WAITE on 08/05/20 2334 Epinephrine 0.3 Mg/0.3 Ml Auto.injct, 0.3 MG IJ Q15M PRN for laryngospasm Prescribed by: JANNIE WAITE on 05/05/20 0107 Epinephrine 0.3 Mg/0.3 Ml Auto.injct, 0.3 MG IJ Q15M PRN for Laryngospasm Prescribed by: JANNIE WAITE on 12/24/20 0302 Methylprednisolone 4 Mg Tab.ds.pk, 4 MG PO UD PER DOSE PACK INSTRUCTIONS Prescribed by: JANNIE WAITE on 12/24/20 0303 Patient Home Medication List Home Medication List Reviewed: Yes Review of Systems Review of Systems Constitutional: No chills, No diaphoresis Eyes: Denies Blindness, Denies Blurred Vision Ears: Denies Dizziness, Denies Pain Nose: denies clots, denies congestion Mouth: see HPI; denies clots, denies pain Throat: denies pain, denies swelling Respiratory: No cough, No short of breath Cardiovascular: No chest pain, No edema All Other Systems Reviewed Negative Unless Noted: Yes Past Krnkixa-Mswslf-Gijeee Hx Patient Social History Tobacco Use?: No Use of E-Cig and/or Vaping dev: No Substance use?: No Alcohol Use?: No Pt feels they are or have been: No Immunizations Up To Date Tetanus Booster (TDap): Less than 5yrs PED Vaccines UTD: Yes Seasonal Allergies Seasonal Allergies: No Past Medical History Surgeries: Yes (LAPROSCOPIC FUNDOPLICATION) Abdominal Respiratory: Yes Asthma Cardiac: No Neurological: No Genitourinary: No Gastrointestinal: No Musculoskeletal: No Endocrine: No 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 oz. kg; 18.00 BMI Method: General Appearance: WD/WN, mild distress Eyes: bilateral eye normal inspection, bilateral eye PERRL, bilateral eye EOMI Ears: bilateral ear auricle normal, bilateral ear canal normal, bilateral ear TM normal Nose: normal inspection; No active bleeding, No discharge Mouth/Throat: normal mouth inspection, pharynx normal; No dental tenderness; other (No pseudomembranous retropharynx) Neck: full range of motion, supple, normal inspection, other (Faint stridorous sounds) Cardiovascular: normal peripheral pulses, regular rate, rhythm Respiratory: lungs clear, normal breath sounds, no respiratory distress, no accessory muscle use Neurologic/Psychiatric: alert, normal mood/affect, oriented x 3 Skin: normal color, warm/dry Progress/Results/Core Measures Results/Orders Lab Results Laboratory Tests Test 12/24/20 00:33 12/24/20 00:35 12/24/20 00:39 12/24/20 00:50 Range/Units White Blood Count 6.4 4.3-11.0 10^3/uL Red Blood Count 4.09 3.80-5.11 10^6/uL Hemoglobin 13.1 11.5-16.0 g/dL Hematocrit 38 35-52 % Mean Corpuscular Volume 93 80-99 fL Mean Corpuscular Hemoglobin 32 25-34 pg Mean Corpuscular Hemoglobin Concent 35 32-36 g/dL Red Cell Distribution Width 11.9 10.0-14.5 % Platelet Count 186 130-400 10^3/uL Mean Platelet Volume 10.1 9.0-12.2 fL Immature Granulocyte % (Auto) 0 % Neutrophils (%) (Auto) 48 42-75 % Lymphocytes (%) (Auto) 44 12-44 % Monocytes (%) (Auto) 7 0-12 % Eosinophils (%) (Auto) 1 0-10 % Basophils (%) (Auto) 1 0-10 % Neutrophils # (Auto) 3.0 1.8-7.8 10^3/uL Lymphocytes # (Auto) 2.8 1.0-4.0 10^3/uL Monocytes # (Auto) 0.5 0.0-1.0 10^3/uL Eosinophils # (Auto) 0.1 0.0-0.3 10^3/uL Basophils # (Auto) 0.0 0.0-0.1 10^3/uL Immature Granulocyte # (Auto) 0.0 0.0-0.1 10^3/uL Sodium Level 141 135-145 MMOL/L Potassium Level 3.7 3.6-5.0 MMOL/L Chloride Level 107 98-107 MMOL/L Carbon Dioxide Level 22 21-32 MMOL/L Anion Gap 12 5-14 MMOL/L Blood Urea Nitrogen 10 7-18 MG/DL Creatinine 0.91 0.60-1.30 MG/DL Estimat Glomerular Filtration Rate > 60 BUN/Creatinine Ratio 11 Glucose Level 109 H 70-105 MG/DL Calcium Level 9.2 8.5-10.1 MG/DL Corrected Calcium 8.9 8.5-10.1 MG/DL Total Bilirubin 0.3 0.1-1.0 MG/DL Aspartate Amino Transf (AST/SGOT) 17 5-34 U/L Alanine Aminotransferase (ALT/SGPT) 14 0-55 U/L Alkaline Phosphatase 65 40-136 U/L C-Reactive Protein High Sensitivity 0.04 0.00-0.50 MG/DL Total Protein 7.3 6.4-8.2 GM/DL Albumin 4.4 3.2-4.5 GM/DL Influenza Type A (RT-PCR) Not Detected Not Detecte Influenza Type B (RT-PCR) Not Detected Not Detecte SARS-CoV-2 RNA (RT-PCR) Not Detected Not Detecte Blood Gas Puncture Site LEFT RADIAL Blood Gas Patient Temperature 36.5 Arterial Blood pH 7.39 7.37-7.43 Arterial Blood Partial Pressure CO2 38 35-45 MMHG Arterial Blood Partial Pressure O2 102 H 79-93 MMHG Arterial Blood HCO3 23 23-27 MMOL/L Arterial Blood Total CO2 23.8 21.0-31.0 MMOL/L Arterial Blood Oxygen Saturation 98 94-100 % Arterial Blood Base Excess -1.8 -2.5-2.5 MMOL/L Hung Test YES-POS Blood Gas Ventilator Setting NO Blood Gas Inspired Oxygen ROOM AIR Urine Color YELLOW Urine Clarity CLEAR Urine pH 6.5 5-9 Urine Specific [place] <=1.005 1.016-1.022 Urine Protein NEGATIVE NEGATIVE Urine Glucose (UA) NEGATIVE NEGATIVE Urine Ketones NEGATIVE NEGATIVE Urine Nitrite NEGATIVE NEGATIVE Urine Bilirubin NEGATIVE NEGATIVE Urine Urobilinogen 0.2 < = 1.0 MG/DL Urine Leukocyte Esterase 1+ H NEGATIVE Urine RBC (Auto) 2+ H NEGATIVE Urine RBC 10-25 H /HPF Urine WBC 5-10 H /HPF Urine Squamous Epithelial Cells 10-25 H /HPF Urine Crystals NONE /LPF Urine Bacteria LARGE H /HPF Urine Casts NONE /LPF Urine Mucus LARGE H /LPF Urine Culture Indicated YES My Orders Orders - JANNIE WAITE Rt Epinephrine (Racemic Epinephrine 2.25 (12/24/20 00:45) Chest 1 View, Ap/Pa Only (12/24/20 00:33) Dexamethasone Injection (Decadron Inje (12/24/20 00:45) Hypertonic Saline 3% Neb (Rt-Hypertonic (12/24/20 00:45) Svn Small Volume Nebulizer (12/24/20 00:33) Cbc With Automated Diff (12/24/20:33) Comprehensive Metabolic Panel (12/24/20 00:33) Hs C Reactive Protein (12/24/20 00:33) Covid 19 Inhouse Test (12/24/20 00:33) Influenza A And B By Pcr (12/24/20 00:33) Ua Culture If Indicated (12/24/20 00:33) Urine Bedside (12/24/20 00:33) Arterial Blood Gas (12/24/20 00:40) Urine Culture (12/24/20 00:50) Epinephrine 1 Mg Injection (Adrenalin I (12/24/20 01:30) Medications Given in ED Current Medications Medications Dose Ordered Sig/Tanna Route Start Time Stop Time Status Last Admin Dose Admin Dexamethasone Sodium Phosphate 10 mg ONCE ONCE IV 12/24/20 00:45 12/24/20 00:46 DC 12/24/20 00:43 10 MG Epinephrine 0.5 ml ONCE ONCE INH 12/24/20 00:45 12/24/20 00:46 DC 12/24/20 01:03 0.5 ML Epinephrine HCl 0.3 mg ONCE ONCE IM 12/24/20 01:30 12/24/20 01:31 DC 12/24/20 01:31 0.3 MG Sodium Chloride Hypertonic 15 ml ONCE ONCE IH 12/24/20 00:45 12/24/20 00:46 DC 12/24/20 01:03 15 ML Vital Signs/I&O 12/24/20 12/24/20 00:25 00:58 Temp 36.5 Pulse 105 Resp 22 B/P (MAP) 141/77 (98) Pulse Ox 97 100 O2 Delivery Room Air Room Air Blood Pressure Mean: 98 Progress Progress Note : Time: 02:55 Progress Note Patient had some improvement after racemic epinephrine nebulizer and was able to utter short 1 or 2 word phrases. The patient was able to communicate by nodding her head yes or no. Her oxygen saturations were 98% on arrival on room air. ABG was obtained which was unremarkable. Rest of her lab was unremarkable. We gave her a third of a milligram IM epinephrine and after that she is able to speak in full sentences no longer having any stridorous or wheezing sounds. We will get her a new autoinjector and encourage her to follow-up with her primary care doctor. 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 We did discuss triggers and could not identify any specific trigger for her laryngospasms. She says she gets them about every 3 to 4 months here lately. She does not follow with a doctor. Departure Impression Primary Impression: Laryngospasm Disposition: HOME, SELF-CARE Condition: Stable Departure-Patient Inst. Decision time for Depature: 02:39 Referrals: [employer] [facility] (PCP/Family) Primary Care Physician Patient Instructions: Inducible Laryngeal Obstruction (ILO) Add. Discharge Instructions: You may inject 1 epinephrine autoinjector every 15 minutes as necessary for laryngospasm on your way to the ER. Follow-up with a primary care provider such as [facility] in the next 2-4 weeks for continued management of your leg spasms. Medrol Dosepak as prescribed. All discharge instructions reviewed with patient and/or family. Voiced understanding. Scripts Methylprednisolone (Methylprednisolone Dose Pack) 4 Mg Tab.ds.pk 4 MG PO UD for 6 Days, #21 PKG 0 Refills PER DOSE PACK INSTRUCTIONS Prov: JANNIE WAITE 12/24/20 Epinephrine (Epipen 2-Waqas) 0.3 Mg/0.3 Ml Auto.injct 0.3 MG IJ Q15M PRN for Laryngospasm, #1 EA 0 Refills Prov: JANNIE WAITE 12/24/20 JANNIE WAITE Dec 24, 2020 00:37
[2020-12-24] MEDS ORDERED: RT-HYPERTONIC SALINE 3% 4 ML NEB IH ONE (00:45)
[2020-12-24] MEDS ORDERED: RT-epiNEPHrine (RACEMIC) 2.25% 0.5 ML VIAL INH ONE (00:45)
[2020-12-24 00:49] LABS: BASOPHILS % (AUTO) 1 % (0-10); EOSINOPHILS # (AUTO) 0.1 10^3/uL (0.0-0.3); EOSINOPHILS % (AUTO) 1 % (0-10); HEMATOCRIT 38 % (35-52); HEMOGLOBIN 13.1 g/dL (11.5-16.0); LYMPHOCYTES # (AUTO) 2.8 10^3/uL (1.0-4.0); LYMPHOCYTES % (AUTO) 44 % (12-44); MEAN CORPUSCULAR HEMOGLOBIN 32 pg (25-34); MEAN CORPUSCULAR HGB CONC 35 g/dL (32-36); MEAN CORPUSCULAR VOLUME 93 fL (80-99); MEAN PLATELET VOLUME 10.1 fL (9.0-12.2); MONOCYTES # (AUTO) 0.5 10^3/uL (0.0-1.0); MONOCYTES % (AUTO) 7 % (0-12); NEUTROPHILS % (AUTO) 48 % (42-75); PLATELET COUNT 186 10^3/uL (130-400); WHITE BLOOD COUNT 6.4 10^3/uL (4.3-11.0)
[2020-12-24 00:50] LABS: ABG BASE EXCESS -1.8 MMOL/L (-2.5-2.5); ABG OXYGEN SATURATION 98 % (94-100); ABG PCO2 38 MMHG (35-45); ABG PH 7.39 (7.37-7.43); ABG PO2 102 MMHG (79-93); ABG TCO2 23.8 MMOL/L (21.0-31.0)
[2020-12-24 00:51] LABS: ALLENS TEST YES-POS; INSPIRED O2 ROOM AIR; PATIENT TEMP 36.5; VENTILATOR NO
[2020-12-24 00:56] LABS: ALBUMIN 4.4 GM/DL (3.2-4.5); CHLORIDE 107 MMOL/L (98-107); POTASSIUM 3.7 MMOL/L (3.6-5.0)
[2020-12-24 00:57] LABS: SODIUM 141 MMOL/L (135-145)
[2020-12-24 00:58] LABS: CALCIUM 9.2 MG/DL (8.5-10.1)
[2020-12-24 00:59] LABS: BILIRUBIN,URINE NEGATIVE (NEGATIVE); CLARITY,URINE CLEAR; COLOR,URINE YELLOW; GLUCOSE, URINE (UA) NEGATIVE (NEGATIVE); KETONES,URINE NEGATIVE (NEGATIVE); LEUKOCYTE ESTERASE ,URINE 1+ (NEGATIVE); NITRITE,URINE NEGATIVE (NEGATIVE); PH,URINE 6.5 (5-9); PROTEIN,URINE NEGATIVE (NEGATIVE)
[2020-12-24 00:59] LABS: GLUCOSE 109 MG/DL (70-105); TOTAL PROTEIN 7.3 GM/DL (6.4-8.2)
[2020-12-24 01:00] LABS: CARBON DIOXIDE 22 MMOL/L (21-32)
[2020-12-24 01:01] LABS: BILIRUBIN,TOTAL 0.3 MG/DL (0.1-1.0)
[2020-12-24 01:02] LABS: ALKALINE PHOSPHATASE 65 U/L (40-136)
[2020-12-24 01:03] LABS: CREATININE SERUM 0.91 MG/DL (0.60-1.30); GFR ESTIMATED > 60
[2020-12-24 01:04] LABS: BUN/CREATININE RATIO 11
[2020-12-24 01:06] LABS: ALANINE AMINOTRANSFERASE 14 U/L (0-55)
[2020-12-24 01:07] LABS: BACTERIA,URINE LARGE /HPF
[2020-12-24] MEDS ORDERED: EPINEPHrine INJECTION 1 MG/ML AMP IM ONE (01:30)
[2020-12-24] MEDS ORDERED: EPIN0.3P3 IJ (03:02)
[2020-12-24] MEDS ORDERED: METH4TAB10 PO (03:03)
[2020-12-24 03:11] VITALS: BP 130/67
--- NOTE | 2020-12-24 06:56 | Diagnostic Imaging Report ---
INDICATION: Shortness of breath. Comparison made with prior examination of 08/05/2020. FINDINGS: The heart size, mediastinal configuration, and pulmonary vascularity are within normal limits. There is no pleural effusion, pneumothorax, or pneumonia. The osseous structures are unremarkable. IMPRESSION: No acute cardiopulmonary abnormality. Dictated by: Dictated on workstation # [id number]
== END 2020-12-24 03:15 | disposition home or self-care (01) ==
LOC: EDUNIT# 00:24 → ER 00:26
DX: J38.5 Laryngeal spasm (principal); J45.909 Unspecified asthma, uncomplicated; F41.9 Anxiety disorder, unspecified; Z20.822 Contact with and (suspected) exposure to COVID-19; Z79.899 Other long term (current) drug therapy
CPT/HCPCS: 36415; 71045; 80053; 81000; 82805; 84703; 85025; 86141; 87088; 87636; 94640

== ENCOUNTER 2021-01-21 12:24 | Emergency (ER) | payer OTHER ==
[~2021-01-21] VITALS: Ht 175.2 cm; Wt 60.0 kg
[~2021-01-21 12:24] MED LIST changes: +METH4TAB10 PO
--- NOTE | 2021-01-21 12:55 | ED Lower Extremity ---
General Stated Complaint: ROLLED R ANKLE, R ANKLE NUMBNESS Source: patient Exam Limitations: no limitations History of Present Illness Date Seen by Provider: Jan 21, 2021 Time Seen by Provider: 12:52 Initial Comments To ER with reports of right ankle bruising and swelling as well as right foot numbness. This began after twisting it during a hiking excursion 48 hours ago. Onset: just prior to arrival Severity: moderate Pain/Injury Location: right ankle Method of Injury: fell, twisted Modifying Factors: Worse With Movement Allergies and Home Medications Allergies Coded Allergies: No Known Drug Allergies (Unverified , 09/02/19) Home Medications Alprazolam 0.25 Mg Tablet, 0.25-0.5 MG PO Q6H PRN for ANXIETY Prescribed by: JANNIE WAITE on 08/05/20 2334 Epinephrine 0.3 Mg/0.3 Ml Auto.injct, 0.3 MG IJ Q15M PRN for laryngospasm Prescribed by: JANNIE WAITE on 05/05/20 0107 Epinephrine 0.3 Mg/0.3 Ml Auto.injct, 0.3 MG IJ Q15M PRN for Laryngospasm Prescribed by: JANNIE WAITE on 12/24/20 0302 Methylprednisolone 4 Mg Tab.ds.pk, 4 MG PO UD PER DOSE PACK INSTRUCTIONS Prescribed by: JANNIE WAITE on 12/24/20 0303 Patient Home Medication List Home Medication List Reviewed: Yes Review of Systems Constitutional: see HPI EENTM: see HPI Respiratory: no symptoms reported Cardiovascular: no symptoms reported Genitourinary: no symptoms reported Musculoskeletal: no symptoms reported Skin: no symptoms reported Psychiatric/Neurological: No Symptoms Reported Past Cbnosbm-Bjxitf-Rxezmh Hx Immunizations Up To Date Tetanus Booster (TDap): Less than 5yrs PED Vaccines UTD: Yes Seasonal Allergies Seasonal Allergies: No Past Medical History Surgeries: Yes (LAPROSCOPIC FUNDOPLICATION) Abdominal Respiratory: Yes Asthma Cardiac: No Neurological: No Genitourinary: No Gastrointestinal: No Musculoskeletal: No Endocrine: No 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 oz. kg; 18.00 BMI Method: General Appearance: WD/WN, no apparent distress HEENT: PERRL/EOMI, normal ENT inspection Neck: non-tender, full range of motion Cardiovascular: regular rate, rhythm, no murmur Respiratory: no respiratory distress, no accessory muscle use Gastrointestinal: normal bowel sounds, non tender, soft Hips: bilateral hip non-tender, bilateral hip normal inspection, bilateral hip normal range of motion Legs: bilateral leg non-tender, bilateral leg normal inspection, bilateral leg normal range of motion Knees: bilateral knee non-tender, bilateral knee normal inspection, bilateral knee normal range of motion Ankles: right ankle ecchymosis, right ankle swelling Feet: bilateral foot non-tender, bilateral foot normal inspection, bilateral foot normal range of motion Neurologic/Psychiatric: alert, normal mood/affect, oriented x 3 Progress/Results/Core Measures Results/Orders My Orders Orders - VALDO HUNT APRN Ankle, Right, 3 Views (01/21/21 12:48) Vital Signs/I&O 01/21/21 12:44 Temp 36.4 Pulse 78 Resp 16 B/P (MAP) 115/72 (86) Pulse Ox 99 O2 Delivery Room Air Departure Impression Primary Impression: Ankle sprain Disposition: 01 HOME, SELF-CARE Condition: Stable Departure-Patient Inst. Decision time for Depature: 13:26 Referrals: [facility] (PCP/Family) Primary Care Physician Patient Instructions: Ankle Sprain ED Add. Discharge Instructions: Elevate the foot is much as possible. Carlos Manuel wrap to the ankle for the next 1 to 2 weeks. The numbness and tingling should go away when the swelling subsides. VALDO HUNT APRN Jan 21, 2021 12:55
--- NOTE | 2021-01-21 13:22 | Diagnostic Imaging Report ---
INDICATION: Rolled ankle, swelling and bruising. EXAMINATION: Right ankle from 01/21/2021 FINDINGS: 3 views of the ankle. There is no evidence for an acute fracture or dislocation. The joint spaces are well maintained. There is no significant soft tissue swelling. IMPRESSION: No acute process. If pain persists, a 7-10 day follow-up recommended. Dictated by: Dictated on workstation # [id number]
[2021-01-21 13:31] VITALS: BP 112/74
== END 2021-01-21 13:31 | disposition home or self-care (01) ==
LOC: EDUNIT# 12:24 → ER 12:27
DX: S93.401A Sprain of unspecified ligament of right ankle, initial encounter (principal); J45.909 Unspecified asthma, uncomplicated; F41.9 Anxiety disorder, unspecified; Z79.52 Long term (current) use of systemic steroids; Z79.899 Other long term (current) drug therapy; X50.1XXA Overexertion from prolonged static or awkward postures, initial encounter
CPT/HCPCS: 73610

== ENCOUNTER 2021-06-06 08:54 | Outpatient (CLI) | payer OTHER ==
[~2021-06-06] VITALS: Ht 175.3 cm; Wt 61.3 kg
[2021-06-06 08:57] VITALS: BP 109/69
[2021-06-06] MEDS ORDERED: ACETAMINOPHEN 500 MG TAB (TYLENOL) PO PRN (09:15)
[2021-06-06] MEDS ORDERED: diphenhydrAMINE 50 MG/ML INJ (BENADRYL) IV PRN (09:15)
[2021-06-06] MEDS ORDERED: ONDANSETRON 4 MG/2 ML (SDV) Z0FRAN IV PRN (09:15)
[2021-06-06] MEDS ORDERED: EPINEPHrine INJECTION 1 MG/ML AMP IM PRN (09:15)
[2021-06-06] MEDS ORDERED: BAMLANIVIMAB 700 MG/ETESEVIMAB 1,400 MG IN NS IV ONE ×3 (09:15)
[2021-06-06 09:51] VITALS: BP 105/60
== END 2021-06-06 10:32 | disposition home or self-care (01) ==
LOC: INFUSION 08:54
PROVIDERS: ATTEND Physician Assistant
DX: U07.1 COVID-19 (principal)

== ENCOUNTER 2021-11-08 19:38 | Emergency (ER) | payer OTHER ==
[~2021-11-08] VITALS: Ht 172 cm; Wt 61.0 kg
[2021-11-08] MEDS ORDERED: LACTATED RINGERS 1,000 ML IV ONE (20:00)
[2021-11-08 20:08] VITALS: BP 131/86
[2021-11-08 20:18] LABS: BASOPHILS % (AUTO) 0 % (0-10); EOSINOPHILS # (AUTO) 0.1 10^3/uL (0.0-0.3); EOSINOPHILS % (AUTO) 1 % (0-10); HEMATOCRIT 40 % (35-52); LYMPHOCYTES % (AUTO) 29 % (12-44); MEAN CORPUSCULAR HEMOGLOBIN 31 pg (25-34); MEAN CORPUSCULAR HGB CONC 35 g/dL (32-36); MEAN CORPUSCULAR VOLUME 90 fL (80-99); MEAN PLATELET VOLUME 9.9 fL (9.0-12.2); MONOCYTES # (AUTO) 0.3 10^3/uL (0.0-1.0); MONOCYTES % (AUTO) 5 % (0-12); NEUTROPHILS # (AUTO) 4.3 10^3/uL (1.8-7.8); NEUTROPHILS % (AUTO) 64 % (42-75); PLATELET COUNT 217 10^3/uL (130-400); WHITE BLOOD COUNT 6.6 10^3/uL (4.3-11.0)
[2021-11-08] MEDS ORDERED: ONDANSETRON 4 MG/2 ML (SDV) Z0FRAN IVP ONE (20:30)
--- NOTE | 2021-11-08 20:32 | ED Psychosocial ---
General Chief Complaint: Overdose Stated Complaint: POSSIBLE OVERDOSE Nursing Triage Note: PT PRESENTS WITH REPORT OF TAKING 16-20 200MG LITHIUM 2-3 HOURS PRIOR TO ARRIVAL. PT DENIES SI REPORTS SHE WAS HAVING A PANICK ATTACK AND TOOK THE MEDICATION IN AN ATTEMPT TO GO TO SLEEP. PT REPORTS VOMITING AND DIARRHEA BEGAN45 MINS PRIOR TO ARRIVAL. Source: patient History of Present Illness Date Seen by Provider: November 08, 2021 Time Seen by Provider: 19:50 Initial Comments PT ARRIVES VIA POV WITH BOYFRIEND PT STATES ABOUT 3-4 HOURS AGO, SHE "TOOK TOO MUCH LITHIUM" STATES SHE TOOK 16-20 LITHIUM 600 MG PILLS STATES "I WAS HAVING A PANIC ATTACK AND IT WAS TRYING TO MAKE MYSELF GO TO SLEEP" DENIES TRYING TO HARM HERSELF, STATES SHE WAS NOT TRYING TO GO TO SLEEP AND NOT WAKE UP CLAIMS SHE "DIDN'T KNOW" THAT 20 PILLS WAS TOO MANY TO TAKE AT ONCE. C/O NAUSEA AND CLAIMS SHE VOMITED "AT LEAST 20 TIMES" BUT IS NOT NAUSEATED NOW. STATES SHE HAS HAD DIARRHEA 5 TIMES THESE SYMPTOMS BEGAN 45 MINUTES PRIOR TO ARRIVAL NO ABDOMINAL PAIN NO OTHER SYMPTOMS AT THIS TIME. PT STATES SHE HAS HAD MULTIPLE PSYCH ADMITS AND HAS OVERDOSED IN THE PAST STATES THE LAST TIME SHE WAS ADMITTED WAS ABOUT A YEAR AGO AND WAS AT [facility], AND WAS ADMITTED THERE "TO COMMAND THE HALLUCINATIONS" AND "TO GET MY MEDICATIONS REGULATED" STATES SHE HAS OVERDOSED ON POTASSIUM IN THE PAST. PT STATES SHE SEES SOMEONE AT [facility], AND HAD ROUTINE FOLLOW UP THE FIRST PART OF OCTOBER WAS STARTED ON LAMICTAL AT THAT TIME, AND HER DOSE OF CLONAZEPAM WAS INCREASED FROM TWICE A DAY TO THREE TIMES A DAY PT IS PRESCRIBED: -LITHIUM 600 MG--SUPPOSED TO BE TAKING 2 A DAY, LATER STATES SHE QUIT TAKING IT A MONTH OR TWO AGO, UNTIL SHE TOOK IT TODAY -LAMICTAL--UNKNOWN DOSE. STATES SHE HAS NOT TAKEN ANY TODAY -SEROQUEL--UNKNOWN DOSE, STATES SHE TOOK 1 THIS MORNING -CLONAZEPAIM--UNKNOWN DOSE, STATES SHE TOOK 2 THIS MORNING -FLUOXETINE--UNKNOWN DOSE, STATES SHE TOOK 1 THIS MORNING DENIES TAKING MORE THAN PRESCRIBED DOSES OF ANY OF HER OTHER MEDICATIONS IS ALSO SUPPOSED TO BE TAKING LEVOTHYROXINE, BUT HAS NOT BEEN TAKING IT LATELY LMP 10/31/21. HAD IUD PLACED ON Saturday11/03/21 PT HAS HAD COVID-19 VACCINE X 2. NO BOOSTER NO FLU VACCINE PCP: WALLACE, MARTHA TURNER-HAD FIRST VISIT LAST WEEK TO ESTABLISH MENTAL HEALTH: WALLACE. Allergies and Home Medications Allergies Coded Allergies: No Known Drug Allergies (Unverified , 09/02/19) Patient Home Medication List Home Medication List Reviewed: Yes Alprazolam (Xanax) 0.5 Mg Tablet, 0.5 MG PO, (Reported) Entered as Reported by: MELANY QUINTERO on 09/02/19 0049 Alprazolam (Xanax) 0.25 Mg Tablet, 0.25-0.5 MG PO Q6H PRN for ANXIETY Prescribed by: JANNIE WAITE on 08/05/20 2334 Epinephrine (Epipen 2-Waqas) 0.3 Mg/0.3 Ml Auto.injct, 0.3 MG IJ Q15M PRN for laryngospasm Prescribed by: JANNIE WAITE on 05/05/20 0107 Epinephrine (Epipen 2-Waqas) 0.3 Mg/0.3 Ml Auto.injct, 0.3 MG IJ Q15M PRN for Laryngospasm Prescribed by: JANNIE WAITE on 12/24/20 0302 Methylprednisolone (Methylprednisolone Dose Pack) 4 Mg Tab.ds.pk, 4 MG PO UD Prescribed by: JANNIE WAITE on 12/24/20 0303 Norethindrone-E.estradiol-Iron (Junel Fe 24 Tablet) 1 Each Tablet, (Reported) Entered as Reported by: MELANY QUINTERO on 09/02/19 0049 Review of Systems Constitutional: no symptoms reported; No fever EENTM: no symptoms reported Respiratory: no symptoms reported Cardiovascular: no symptoms reported Gastrointestinal: see HPI; No abdominal pain; diarrhea, nausea, vomiting Genitourinary: no symptoms reported : No LMP: October 31, 2021 Control/STD Prophylaxis: IUD Musculoskeletal: no symptoms reported Skin: no symptoms reported Psychiatric/Neurological: See HPI Past Qmexoge-Eguhwm-Ancnds Hx Patient Social History Tobacco Use?: No Substance use?: No Alcohol Use?: Yes Alcohol Frequency: Once in a while Immunizations Up To Date Tetanus Booster (TDap): Less than 5yrs PED Vaccines UTD: Yes Influenza Vaccine Up-to-Date: No; Not Current First/Initial COVID19 Vaccinat: UNKNOWN DATE Second COVID19 Vaccination Tal: UNKNOWN DATE Seasonal Allergies Seasonal Allergies: No Past Medical History Surgery/Hospitalization HX: HERNIA Surgeries: Yes (LAPROSCOPIC FUNDOPLICATION/HIATAL HERNIA REPAIR) Abdominal Respiratory: Yes Asthma Cardiac: No Neurological: No : No Last Menstrual Period: October 31, 2021 Reproductive Disorders: No Genitourinary: No Gastrointestinal: No Musculoskeletal: No Endocrine: No 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 oz. kg; 20.00 BMI Method: General Appearance: WD/WN, no apparent distress, other (SMILING, TALKING [id number]. SPEECH IS CLEAR AND GAIT IS STEADY. DOES NOT APPEAR TO BE ILL OR IN ANY DISCOMFORT OR DISTRESS. DOES NOT APPEAR DROWSY. 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 NO PROBLEMS WITH COORDINATION. ) Appearance/Memory: appropriate appearance, neat, no memory impairment, impaired insight Behavior/Eye Contact: cooperative, good eye contact, normal speech Thoughts/Hallucinations: normal thought pattern, no apparent hallucination; No delusions, No flight of ideas, No grandiose, No incoherent, No obsessive, No paranoid, No persecution, No phobic, No baptist Skin: normal color, warm/dry, other (NO EXTERNAL EVIDENCE OF TRAUMA. ) Progress/Results/Core Measures Results/Orders Lab Results Laboratory Tests Test 11/08/21 19:53 11/08/21 20:10 11/08/21 20:11 11/08/21 21:13 Range/Units White Blood Count 6.6 4.3-11.0 10^3/uL Red Blood Count 4.48 3.80-5.11 10^6/uL Hemoglobin 14.0 11.5-16.0 g/dL Hematocrit 40 35-52 % Mean Corpuscular Volume 90 80-99 fL Mean Corpuscular Hemoglobin 31 25-34 pg Mean Corpuscular Hemoglobin Concent 35 32-36 g/dL Red Cell Distribution Width 13.7 10.0-14.5 % Platelet Count 217 130-400 10^3/uL Mean Platelet Volume 9.9 9.0-12.2 fL Immature Granulocyte % (Auto) 0 % Neutrophils (%) (Auto) 64 42-75 % Lymphocytes (%) (Auto) 29 12-44 % Monocytes (%) (Auto) 5 0-12 % Eosinophils (%) (Auto) 1 0-10 % Basophils (%) (Auto) 0 0-10 % Neutrophils # (Auto) 4.3 1.8-7.8 10^3/uL Lymphocytes # (Auto) 2.0 1.0-4.0 10^3/uL Monocytes # (Auto) 0.3 0.0-1.0 10^3/uL Eosinophils # (Auto) 0.1 0.0-0.3 10^3/uL Basophils # (Auto) 0.0 0.0-0.1 10^3/uL Immature Granulocyte # (Auto) 0.0 0.0-0.1 10^3/uL Sodium Level 144 135-145 MMOL/L Potassium Level 4.1 3.6-5.0 MMOL/L Chloride Level 106 98-107 MMOL/L Carbon Dioxide Level 23 21-32 MMOL/L Anion Gap 15 H 5-14 MMOL/L Blood Urea Nitrogen 19 H 7-18 MG/DL Creatinine 1.01 0.60-1.30 MG/DL Estimat Glomerular Filtration Rate 81 BUN/Creatinine Ratio 19 Glucose Level 88 70-105 MG/DL Calcium Level 10.4 H 8.5-10.1 MG/DL Corrected Calcium 8.5-10.1 MG/DL Total Bilirubin 0.3 0.1-1.0 MG/DL Aspartate Amino Transf (AST/SGOT) 20 5-34 U/L Alanine Aminotransferase (ALT/SGPT) 9 0-55 U/L Alkaline Phosphatase 73 40-136 U/L Total Protein 8.1 6.4-8.2 GM/DL Albumin 4.8 H 3.2-4.5 GM/DL TSH Mccracken Testing 3.88 0.35-4.94 UIU/ML Salicylates Level < 5.0 L 5.0-20.0 MG/DL Acetaminophen Level < 10 L 10-30 UG/ML Serum Alcohol < 10 <10 MG/DL Influenza Type A (RT-PCR) Not Detected Not Detecte Influenza Type B (RT-PCR) Not Detected Not Detecte SARS-CoV-2 RNA (RT-PCR) Not Detected Not Detecte Glucometer 93 70-110 MG/DL Urine Color YELLOW Urine Clarity CLEAR Urine pH 8.5 5-9 Urine Specific Bath 1.015 L 1.016-1.022 Urine Protein NEGATIVE NEGATIVE Urine Glucose (UA) NEGATIVE NEGATIVE Urine Ketones NEGATIVE NEGATIVE Urine Nitrite NEGATIVE NEGATIVE Urine Bilirubin NEGATIVE NEGATIVE Urine Urobilinogen 0.2 < = 1.0 MG/DL Urine Leukocyte Esterase NEGATIVE NEGATIVE Urine RBC (Auto) 1+ H NEGATIVE Urine RBC 2-5 H /HPF Urine WBC NONE /HPF Urine Squamous Epithelial Cells 0-2 /HPF Urine Renal Epithelial Cells NONE /HPF Urine Crystals NONE /LPF Urine Bacteria NEGATIVE /HPF Urine Casts NONE /LPF Urine Mucus NEGATIVE /LPF Urine Culture Indicated NO Urine Test NEGATIVE NEGATIVE Urine Opiates Screen NEGATIVE NEGATIVE Urine Oxycodone Screen NEGATIVE NEGATIVE Urine Methadone Screen NEGATIVE NEGATIVE Urine Propoxyphene Screen NEGATIVE NEGATIVE Urine Barbiturates Screen NEGATIVE NEGATIVE Ur Tricyclic Antidepressants Screen POSITIVE H NEGATIVE Urine Phencyclidine Screen NEGATIVE NEGATIVE Urine Amphetamines Screen NEGATIVE NEGATIVE Urine Methamphetamines Screen NEGATIVE NEGATIVE Urine Benzodiazepines Screen NEGATIVE NEGATIVE Urine Cocaine Screen NEGATIVE NEGATIVE Urine Cannabinoids Screen NEGATIVE NEGATIVE My Orders Orders - RADHA LEONARDO DO Urinalysis (11/08/21 19:49) Thyroid Analyzer (11/08/21 19:49) Drug Screen Stat (Urine) (11/08/21 19:49) Cbc With Automated Diff (11/08/21 19:49) Comprehensive Metabolic Panel (11/08/21 19:49) Alcohol (11/08/21 19:49) Acetaminophen (11/08/21 19:49) Salicylate (11/08/21 19:49) Ekg Tracing (11/08/21 19:49) Monitor-Rhythm Ecg Trace Only (11/08/21 19:49) Accucheck Stat ONCE (11/08/21 19:49) Ed Iv/Invasive Line Start (11/08/21 19:49) Urine Bedside (11/08/21 19:49) Ed Iv/Invasive Line Start (11/08/21 19:49) Lactated Ringers (Lr 1000 Ml Iv Solution (11/08/21 20:00) Covid 19 Inhouse Test (11/08/21 19:49) Influenza A And B By Pcr (11/08/21 19:49) Isolation Central Supply Req (11/08/21 19:49) [place] Level (11/08/21 19:55) Ondansetron Injection (Zofran Injectio (11/08/21 20:30) Hcg,Qualitative Urine (11/08/21 20:49) Medications Given in ED Current Medications Medications Dose Ordered Sig/Tanna Route Start Time Stop Time Status Last Admin Dose Admin Lactated Ringer's 1,000 ml @ 0 mls/hr Q0M ONCE IV 11/08/21 20:00 11/08/21 20:01 DC 11/08/21 20:15 0 MLS/HR Vital Signs/I&O 11/08/21 20:08 Temp 35.9 Pulse 101 Resp 16 B/P (MAP) 131/86 (101) Pulse Ox 98 O2 Delivery Room Air 11/09/21 00:00 Intake Total 1000 ml Balance 1000 ml Blood Pressure Mean: 101 Progress Progress Note : Progress Note GIVEN IV FLUIDS AND ZOFRAN NO VOMITING OR DIARRHEA DURING ER STAY. NO DETERIORATION IN PT'S CONDITION DURING ER STAY VITALS ALL NORMAL AND STABLE. CHEMISTRY ANALYZER IS CURRENTLY DOWN, AND ADDITIONALLY, LITHIUM LEVELS ARE A SEND OUT TEST AND TAKES > 24 HOURS TO HAVE RESULTS. THEREFORE, WILL HAVE TO TRANSFER PT TO ANOTHER FACILITY THAT HAS IN-HOUSE LITHIUM TESTING ABILITY, WELL INPATIENT PSYCH CARE WHEN CLEARED MEDICALLY. Initial ECG Impression Date: November 08, 2021 Initial ECG Impression Time: 20:06 Initial ECG Rate: 91 Initial ECG Rhythm: Normal Sinus Initial ECG Comparisson: No Previous ECG Available Departure Communication (Admissions) 1956--CALLED POISON CONTROL. RECOMMENDATIONS NOTED. 2002--CALLED [facility] 2014--SPOKE WITH DR. SUZAN HALL, ER PHYSICIAN. ACCEPTS PT FOR TRANSFER 2124--EMS HERE FOR TRANSFER Impression Primary Impression: Intentional lithium overdose Disposition: 02 XFER SHT-TRM HOSP Condition: Stable Transfer Transfer Reason: Exceeds level of care [facility] Method of Transfer: EMS Departure-Patient Inst. Referrals: [facility] (PCP/Family) Primary Care Physician Patient Instructions: ALCOHOL AND SUBSTANCE ABUSE RADHA LEONARDO DO November 08, 2021 20:31
[2021-11-08 20:36] LABS: CHLORIDE 106 MMOL/L (98-107); POTASSIUM 4.1 MMOL/L (3.6-5.0); SODIUM 144 MMOL/L (135-145)
[2021-11-08 20:37] LABS: ALBUMIN 4.8 GM/DL (3.2-4.5)
[2021-11-08 20:38] LABS: CALCIUM 10.4 MG/DL (8.5-10.1)
[2021-11-08 20:39] LABS: GLUCOSE 88 MG/DL (70-105); TOTAL PROTEIN 8.1 GM/DL (6.4-8.2)
[2021-11-08 20:40] LABS: CARBON DIOXIDE 23 MMOL/L (21-32)
[2021-11-08 20:41] LABS: BILIRUBIN,TOTAL 0.3 MG/DL (0.1-1.0)
[2021-11-08 20:43] LABS: ALKALINE PHOSPHATASE 73 U/L (40-136); CREATININE SERUM 1.01 MG/DL (0.60-1.30); GFR ESTIMATED 81
[2021-11-08 20:44] LABS: BUN/CREATININE RATIO 19
[2021-11-08 20:46] LABS: ACETAMINOPHEN < 10 UG/ML (10-30); ALANINE AMINOTRANSFERASE 9 U/L (0-55); SALICYLATE < 5.0 MG/DL (5.0-20.0)
[2021-11-08 21:09] LABS: TSH (THYROID ANALYZER) 3.88 UIU/ML (0.35-4.94)
[2021-11-08 21:19] LABS: BILIRUBIN,URINE NEGATIVE (NEGATIVE); CLARITY,URINE CLEAR; COLOR,URINE YELLOW; GLUCOSE, URINE (UA) NEGATIVE (NEGATIVE); KETONES,URINE NEGATIVE (NEGATIVE); LEUKOCYTE ESTERASE ,URINE NEGATIVE (NEGATIVE); NITRITE,URINE NEGATIVE (NEGATIVE); PH,URINE 8.5 (5-9); PROTEIN,URINE NEGATIVE (NEGATIVE)
[2021-11-08 21:30] LABS: BACTERIA,URINE NEGATIVE /HPF; SQUAMOUS EPITHELIAL CELL,UR 0-2 /HPF
[2021-11-08 21:31] LABS: HCG,QUALITATIVE URINE NEGATIVE (NEGATIVE)
[2021-11-08 21:32] LABS: AMPHETAMINE SCREEN, URINE NEGATIVE (NEGATIVE); BARBITURATE SCREEN URINE NEGATIVE (NEGATIVE); BENZODIAZEPINES SCREEN URINE NEGATIVE (NEGATIVE); CANNABINOID SCREEN, URINE NEGATIVE (NEGATIVE); COCAINE SCREEN URINE NEGATIVE (NEGATIVE); METHADONE STAT NEGATIVE (NEGATIVE); OPIATE SCREEN URINE NEGATIVE (NEGATIVE); OXYCODONE STAT NEGATIVE (NEGATIVE); PROPOXYPHENE STAT NEGATIVE (NEGATIVE); TRICYCLIC ANTIDEPRESSANTS SCRE POSITIVE (NEGATIVE)
== END 2021-11-08 21:35 | disposition short-term general hospital (02) ==
LOC: EDUNIT# 19:38 → ER 19:40
DX: T56.892A Toxic effect of other metals, intentional self-harm, initial encounter (principal); Z20.822 Contact with and (suspected) exposure to COVID-19
CPT/HCPCS: 80053; 80178; 80306; 81000; 82947; 84443; 84703; 85025; 87636; 93005; 93041; 99285; G0480 ×3; 36415; 80320; 80329

== ENCOUNTER 2021-11-27 21:40 | Emergency (ER) | payer OTHER ==
[~2021-11-27] VITALS: Ht 178 cm; Wt 63.0 kg
[2021-11-27] MEDS ORDERED: EPINEPHrine INJECTION 1 MG/ML AMP ONE (21:51)
[2021-11-27] MEDS ORDERED: RT-ALBUTEROL HFA 8.5 GM INHALER IH ONE (21:51)
[2021-11-27] MEDS ORDERED: methylPREDNISolone 125 MG (Solu-MEDROL) VIAL ONE (21:51)
[2021-11-27] MEDS ORDERED: NS IV 1000 ML 1,000 ML ONE (21:53)
--- NOTE | 2021-11-27 21:53 | ED General ---
General Chief Complaint: Altered Mental Status Stated Complaint: POSS ALLERGIC REACTION/THROAT ISSUES/SOB Source of Information: Patient Exam Limitations: No Limitations History of Present Illness Date Seen by Provider: Nov 27, 2021 Time Seen by Provider: 21:41 Initial Comments 21-year-old female with past medical history of intermittent laryngospasm coming in feeling like she is having an episode. Started about an hour prior to arrival. She gave herself an EpiPen injection as well as 50 mg of oral Benadryl. She says epinephrine helps in the past. She did take azithromycin earlier, is not thinking she is allergic to it since its not very related to this in the past. Denies any rash anywhere, chest pain, abdominal pain, nausea, vomiting, diarrhea, weakness, numbness, or any other concerns. She says feels like her vocal cords are closing, it is hard to breathe, and difficult to speak. Allergies and Home Medications Allergies Coded Allergies: No Known Drug Allergies (Unverified , 09/02/19) Patient Home Medication List Home Medication List Reviewed: Yes Alprazolam (Xanax) 0.5 Mg Tablet, 0.5 MG PO, (Reported) Entered as Reported by: MELANY QUINTERO on 09/02/19 0049 Alprazolam (Xanax) 0.25 Mg Tablet, 0.25-0.5 MG PO Q6H PRN for ANXIETY Prescribed by: JANNIE WAITE on 08/05/20 2334 Epinephrine (Epipen 2-Waqas) 0.3 Mg/0.3 Ml Auto.injct, 0.3 MG IJ Q15M PRN for laryngospasm Prescribed by: JANNIE WAITE on 05/05/20 0107 Epinephrine (Epipen 2-Waqas) 0.3 Mg/0.3 Ml Auto.injct, 0.3 MG IJ Q15M PRN for Laryngospasm Prescribed by: JANNIE WAITE on 12/24/20 030 Methylprednisolone (Methylprednisolone Dose Pack) 4 Mg Tab.ds.pk, 4 MG PO UD Prescribed by: JANNIE WAITE on 12/24/20 0303 Norethindrone-E.estradiol-Iron (June Fe 24 Tablet) 1 Each Tablet, (Reported) Entered as Reported by: MELANY QUINTERO on 09/02/19 0049 Review of Systems Review of Systems Constitutional: No fever EENTM: No blurred vision Respiratory: short of breath Cardiovascular: no symptoms reported Gastrointestinal: no symptoms reported Genitourinary: no symptoms reported Musculoskeletal: no symptoms reported Skin: no symptoms reported Psychiatric/Neurological: No Symptoms Reported Hematologic/Lymphatic: No Symptoms Reported Immunological/Allergic: no symptoms reported All Other Systems Reviewed Negative Unless Noted: Yes Past Erjzzlj-Pwouml-Mpkegm Hx Patient Social History Tobacco Use?: No Immunizations Up To Date Tetanus Booster (TDap): Less than 5yrs PED Vaccines UTD: Yes First/Initial COVID19 Vaccinat: UNKNOWN DATE Second COVID19 Vaccination Tal: UNKNOWN DATE Seasonal Allergies Seasonal Allergies: No Past Medical History Surgery/Hospitalization HX: HERNIA Surgeries: Yes (LAPROSCOPIC FUNDOPLICATION/HIATAL HERNIA REPAIR) Abdominal Respiratory: Yes Asthma Cardiac: No Neurological: No Reproductive Disorders: No Genitourinary: No Gastrointestinal: No Musculoskeletal: No Endocrine: No 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 oz. kg; 20.00 BMI Method: General Appearance: WD/WN, Mild Distress Eyes: Bilateral Eye Normal Inspection HEENT: PERRL/EOMI, Normal ENT Inspection, Pharynx Normal Neck: Full Range of Motion, Normal Inspection, Non Tender, Supple Respiratory: Chest Non Tender, Lungs Clear, Normal Breath Sounds, No Accessory Muscle Use, No Respiratory Distress Cardiovascular: No Edema, No Murmur, Tachycardia Gastrointestinal: Normal Bowel Sounds, Non Tender, Soft; No Distended Back: Normal Inspection, No CVA Tenderness, No Vertebral Tenderness Extremity: Normal Capillary Refill, Normal Inspection, Normal Range of Motion, Non Tender, No Calf Tenderness Neurologic/Psychiatric: Alert, Oriented x3, No Motor/Sensory Deficits, Normal Mood/Affect Skin: Normal Color, Warm/Dry Lymphatic: No Adenopathy Progress/Results/Core Measures Suspected Sepsis SIRS Temperature: Pulse: Respiratory Rate: Blood Pressure / Mean: Results/Orders My Orders Orders - YOANA BLAND MD Epinephrine 1 Mg Injection (Adrenalin I (11/27/21 21:51) Albuterol Inhaler (Albuterol) (11/27/21 21:51) Methylprednisolone Sod Succ (Solu-Medrol (11/27/21 21:51) Ns Iv 1000 Ml (Sodium Chloride 0.9%) (11/27/21 21:53) Lorazepam Injection (Ativan Injection) (11/27/21 21:59) Rt Epinephrine (Racemic Epinephrine 2.25 (11/27/21 22:15) Hypertonic Saline 3% Neb (Rt-Hypertonic (11/27/21 22:03) Svn Small Volume Nebulizer (11/27/21 22:01) Rt Epinephrine (Racemic Epinephrine 2.25 (11/27/21 22:04) Medications Given in ED Current Medications Medications Dose Ordered Sig/Tanna Route Start Time Stop Time Status Last Admin Dose Admin Epinephrine 0.5 ml STK-MED ONCE .ROUTE 11/27/21 22:04 11/27/21 22:08 DC 11/27/21 22:12 0.5 ML Methylprednisolone Sodium Succinate 125 mg STK-MED ONCE .ROUTE 11/27/21 21:51 11/27/21 21:54 DC 11/27/21 21:56 125 MG Sodium Chloride 1,000 ml @ ud STK-MED ONCE .ROUTE 11/27/21 21:53 11/27/21 21:56 DC 11/27/21 21:57 1,000 MLS/HR Sodium Chloride Hypertonic 15 ml ONCE ONCE IH 11/27/21 22:03 11/27/21 22:04 DC 11/27/21 22:12 15 ML Vital Signs/I&O 11/27/21 22:14 Pulse Ox 98 O2 Delivery Room Air FiO2 21 Capillary Refill : Progress Note : Progress Note 21-year-old female with above history coming in due to a laryngospasm. She had just given herself epinephrine so her heart rate was elevated to the 130s on arrival. She is having difficulty speaking was breathing through pursed lips. On review of the chart, racemic epinephrine had helped in the past so give this to her. We also gave her IV steroids, fluids, and she had already taken 50 mg of oral Benadryl. After the racemic epinephrine nebulizer, her symptoms had nearly resolved completely. Continue to monitor the patient and she continues to be at her baseline. She says this is happened numerous times in her life, and it never has recurred in the same night once it resolves. She has followed up with an ENT before and had a scope looking at it. I believe she is stable for discharge with outpatient follow-up. She was sent home with strict return precautions. Departure Impression Primary Impression: Laryngospasm Disposition: HOME, SELF-CARE Condition: Improved Departure-Patient Inst. Decision time for Depature: 22:41 Referrals: [facility] (PCP/Family) Primary Care Physician Patient Instructions: Inducible Laryngeal Obstruction (ILO) Add. Discharge Instructions: I have refilled the prescription for your EpiPen. I would try to get a follow- up appointment with a speech-language pathologist to see if they can help you. Scripts Epinephrine (Epipen 2-Waqas) 0.3 Mg/0.3 Ml Auto.injct 0.3 MG IJ Q15M PRN for anaphylaxis for 1 Day, #2 UNITS Prov: YOANA BLAND MD 11/27/21 Work/School Note: Work Release Form Date Seen in the Emergency Department: Nov 27, 2021 Return to Work: Nov 29, 2021 Restrictions: No Restrictions YOANA BLAND MD Nov 27, 2021 21:53
[2021-11-27] MEDS ORDERED: LORazepam INJ 2 MG/ML (ATIVAN) VIAL IVP STA (21:59)
[2021-11-27] MEDS ORDERED: RT-HYPERTONIC SALINE 3% 4 ML NEB IH ONE (22:03)
[2021-11-27] MEDS ORDERED: RT-epiNEPHrine (RACEMIC) 2.25% 0.5 ML VIAL ONE (22:04)
[2021-11-27] MEDS ORDERED: RT-epiNEPHrine (RACEMIC) 2.25% 0.5 ML VIAL INH ONE (22:15)
[2021-11-27] MEDS ORDERED: EPIN0.3P3 IJ (22:43)
[2021-11-27 23:01] VITALS: BP 122/72
== END 2021-11-27 23:17 | disposition home or self-care (01) ==
LOC: EDUNIT# 21:40 → ER 21:41
DX: J38.5 Laryngeal spasm (principal)
CPT/HCPCS: 94640

== ENCOUNTER 2022-01-15 19:12 | Emergency (ER) | payer OTHER ==
[~2022-01-15] VITALS: Ht 175.3 cm; Wt 61.2 kg
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
[2022-01-15 19:44] LABS: BASOPHILS % (AUTO) 0 % (0-10); EOSINOPHILS # (AUTO) 0.1 10^3/uL (0.0-0.3); EOSINOPHILS % (AUTO) 1 % (0-10); HEMATOCRIT 41 % (35-52); HEMOGLOBIN 14.2 g/dL (11.5-16.0); LYMPHOCYTES # (AUTO) 1.9 10^3/uL (1.0-4.0); LYMPHOCYTES % (AUTO) 30 % (12-44); MEAN CORPUSCULAR HEMOGLOBIN 32 pg (25-34); MEAN CORPUSCULAR HGB CONC 35 g/dL (32-36); MEAN CORPUSCULAR VOLUME 91 fL (80-99); MEAN PLATELET VOLUME 9.6 fL (9.0-12.2); MONOCYTES # (AUTO) 0.3 10^3/uL (0.0-1.0); MONOCYTES % (AUTO) 5 % (0-12); NEUTROPHILS # (AUTO) 4.1 10^3/uL (1.8-7.8); NEUTROPHILS % (AUTO) 64 % (42-75); PLATELET COUNT 223 10^3/uL (130-400); WHITE BLOOD COUNT 6.5 10^3/uL (4.3-11.0)
[2022-01-15 20:08] LABS: ALANINE AMINOTRANSFERASE 13 U/L (0-55); ALBUMIN 4.8 GM/DL (3.2-4.5); ALKALINE PHOSPHATASE 77 U/L (40-136); BILIRUBIN,TOTAL 0.3 MG/DL (0.1-1.0); BUN/CREATININE RATIO 10; CALCIUM 9.7 MG/DL (8.5-10.1); CARBON DIOXIDE 23 MMOL/L (21-32); CHLORIDE 104 MMOL/L (98-107); CREATININE SERUM 0.99 MG/DL (0.60-1.30); GFR ESTIMATED 83; GLUCOSE 95 MG/DL (70-105); POTASSIUM 3.7 MMOL/L (3.6-5.0); SALICYLATE < 5.0 MG/DL (5.0-20.0); SODIUM 139 MMOL/L (135-145); TOTAL PROTEIN 7.9 GM/DL (6.4-8.2)
[2022-01-15 20:14] LABS: BILIRUBIN,URINE NEGATIVE (NEGATIVE); CLARITY,URINE CLEAR; COLOR,URINE YELLOW; GLUCOSE, URINE (UA) NEGATIVE (NEGATIVE); KETONES,URINE NEGATIVE (NEGATIVE); LEUKOCYTE ESTERASE ,URINE NEGATIVE (NEGATIVE); NITRITE,URINE NEGATIVE (NEGATIVE); PROTEIN,URINE NEGATIVE (NEGATIVE)
[2022-01-15 20:24] LABS: ACETAMINOPHEN < 10 UG/ML (10-30)
[2022-01-15 20:27] LABS: BACTERIA,URINE MODERATE /HPF; WBC,URINE 0-2 /HPF
[2022-01-15 20:28] LABS: AMPHETAMINE SCREEN, URINE NEGATIVE (NEGATIVE); BARBITURATE SCREEN URINE NEGATIVE (NEGATIVE); BENZODIAZEPINES SCREEN URINE NEGATIVE (NEGATIVE); CANNABINOID SCREEN, URINE NEGATIVE (NEGATIVE); COCAINE SCREEN URINE NEGATIVE (NEGATIVE); METHADONE STAT NEGATIVE (NEGATIVE); OPIATE SCREEN URINE NEGATIVE (NEGATIVE); OXYCODONE STAT NEGATIVE (NEGATIVE); PROPOXYPHENE STAT NEGATIVE (NEGATIVE); TRICYCLIC ANTIDEPRESSANTS SCRE NEGATIVE (NEGATIVE)
[2022-01-15] MEDS ORDERED: HOLD METFORMIN - RECEIVED CONTRAST 20 ML VIAL IV SCH (21:45)
[2022-01-15] MEDS ORDERED: NS 100 ML (IVPB) BAG IV ONE (21:45)
[2022-01-15] MEDS ORDERED: IOHEXOL 350 MG/ML 100 ML (OMNIPAQUE 350) VIAL IV ONE (21:45)
[2022-01-15] MEDS ORDERED: CATHETER FLUSH 10 ML SYR IV PRN (21:45)
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
[2022-01-15 22:22] VITALS: BP 141/91
== END 2022-01-15 22:22 | disposition home or self-care (01) ==
LOC: EDUNIT# 19:12 → ER 19:16
DX: S06.0X9A Concussion with loss of consciousness of unspecified duration, initial encounter (principal); R07.81 Pleurodynia; Z32.02 Encounter for pregnancy test, result negative; V89.2XXA Person injured in unspecified motor-vehicle accident, traffic, initial encounter
CPT/HCPCS: 70450; 71260; 72125; 74177; 80053; 80306; 81000; 84484; 84703 ×2; 85025; 87088; 93005; 99284; G0480 ×2; 36415; 80329